=== PATIENT | male | born 1995 | race Two or more races ===

== ENCOUNTER 2017-05-14 21:46 | Emergency (ER) | payer BC ==
[2017-05-14 23:10] VITALS: BP 116/66
--- NOTE | 2017-05-15 00:57 | ED ---
Lower Extremity - HPI Summary HPI Summary: 21M presents with pain in left pinky toe. He states he has pain when ambulates. no numbness or tingling. took nothing. no previous injury. - History of Current Complaint Chief Complaint: EDGeneral Stated Complaint: PINKY TOE ON LT FT Time Seen by Provider: 05/14/17 23:53 Pain Intensity: 3 - Allergies/Home Medications Allergies/Adverse Reactions: Allergies Allergy/AdvReac Type Severity Reaction Status Date / Time No Known Allergies Allergy Verified 05/15/17 00:08 PMH/Surg Hx/FS Hx/Imm Hx Endocrine/Hematology History: Denies: Hx Anticoagulant Therapy Cardiovascular History: Denies: Hx Hypertension Infectious Disease History: Denies: Traveled Outside the [place] in Last 30 Days - Family History Known Family History: Positive: Hypertension - Social History Alcohol Use: Occasionally Substance Use Type: Reports: None Smoking Status (MU): Never Smoked Tobacco Review of Systems Negative: Fever Negative: Chest Pain Negative: Shortness Of Breath Positive: Other - left pinky toe pain All Other Systems Reviewed And Are Negative: Yes Physical Exam Triage Information Reviewed: Yes Vital Signs On Initial Exam: Initial Vitals Temp Pulse Resp BP Pulse Ox 99 F 76 20 145/48 100 05/14/17 22:10 05/14/17 22:10 05/14/17 22:10 05/14/17 22:10 05/14/17 22:10 Vital Signs Reviewed: Yes Appearance: Positive: Well-Appearing Skin: Positive: Warm, Dry Head/Face: Positive: Normal Head/Face Inspection Eyes: Positive: Normal, Conjunctiva Clear Respiratory/Lung Sounds: Positive: Clear to Auscultation, Breath Sounds Present Cardiovascular: Positive: Normal, RRR Musculoskeletal: Positive: Limited @ - left pinky toe, Edema Left - pinky toe, Other - good pulses, capillary refill<2 secs Diagnostics - Vital Signs Vital Signs Temp Pulse Resp BP Pulse Ox 05/14/17 23:09 99.1 F 75 18 116/66 95 05/14/17 22:10 99 F 76 20 145/48 100 - Laboratory Lab Statement: Any lab studies that have been ordered have been reviewed, and results considered in the medical decision making process. - Radiology foot Xray Interpretation: Positive (See Comments) - proximal phlanax fracture Radiology Interpretation Completed By: ED Physician Lower Extremity Course/Dx - Course Course Of Treatment: 21M presents with pain in right pinky toe. He states he has pain when ambulates. no numbness or tingling. took nothing. no previous injury. on exam tender over pinky. xray shows fracture of proximal pinky toe. discussed with dr ashley and placed in post op shoe. patient understands and agrees with plan. - Diagnoses Differential Diagnosis/HQI/PQRI: Positive: Contusion, Fracture (Closed), Sprain Provider Diagnoses: Closed fracture of phalanx of left fifth toe Discharge - Discharge Plan Condition: Good Disposition: HOME Patient Education Materials: Toe Fracture (ED) Referrals: [facility] [Primary Care Provider] - Additional Instructions: Wear hard sole shoes Keep guicho taped Ice, elevate Take ibuprofen every 6 hours Follow up with ortho if no improvement in a week Return to ED if develop any new or worsening symptoms
--- NOTE | 2017-05-15 07:54 | RAD ---
Indication: LEFT fifth toe pain following stubbing injury. Comparison: No relevant prior exams available on the [facility] P[facility] for comparison. Technique: 3 views LEFT fifth toe REPORT AND IMPRESSION: Minimally comminuted nonarticular oblique fracture through the diaphysis and distal metaphysis of the proximal phalanx with mild cephalocaudal override of the fracture fragments due to impaction. 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 Normal articular alignment.
== END 2017-05-15 01:08 | disposition home or self-care (01) ==
LOC: ED 21:46
DX: S92.502A Displaced unspecified fracture of left lesser toe(s), initial encounter for closed fracture (principal); X58.XXXA Exposure to other specified factors, initial encounter; Y93.9 Activity, unspecified; Y92.9 Unspecified place or not applicable
CPT/HCPCS: 99282